=== PATIENT | female | born 1960 | race Caucasian/White ===

== ENCOUNTER → 2018-05-01 02:49 | Outpatient (CLI) | payer OTHER, SELFPAY ==
[2018-05-01 08:03] LABS: HCT 44.4 % (36.0-46.0); HGB 14.9 g/dL (12.0-15.5); Mean Corp. HGB Concentration 33.6 g/dL (32.0-36.0); Mean Corpuscular Hemoglobin 31.2 pg (27.0-33.0); Mean Corpuscular Volume 93.1 fL (80-95); Mean Platelet Volume 9.4 fL (8.0-11.0); Platelet Count 230 x1000/uL (130-400); RBC 4.77 m/cumm (4.00-5.20); RBC Distribution Width 12.9 % (11.7-14.6); White Blood Cell Count 5.48 k/cumm (4.4-10.8)
[2018-05-01 08:20] LABS: Bilirubin Negative (Negative); Blood Negative (Negative); Clarity Clear; Glucose Negative (Negative); Ketones Negative (Negative); Leukocyte Esterase Small (Negative); Nitrite Negative (Negative); Specific Gravity 1.015 (1.005-1.025); Urobilinogen 0.2 EU/dL (Up TO 0.2); pH 7.5 (5-8)
[2018-05-01 08:30] LABS: RBC 0-2 (0-2); WBC 20-50 HPF (0-5)
[2018-05-01 08:31] LABS: Bacteria Moderate HPF (Negative); C & S Indicated? No/Sq. Contamination; Casts Negative LPF (Negative); Crystals Negative HPF (Negative); Epithelial Cells Moderate HPF (Negative); Mucus Negative (Negative)
[2018-05-01 08:48] LABS: Iron 93 ug/dL (50-175)
[2018-05-01 08:55] LABS: ALT 23 U/L (12-78); AST 18 U/L (15-37); Albumin 3.9 g/dL (3.4-5.0); Alkaline Phosphatase 83 U/L (46-116); BUN 16 mg/dL (7-18); Bilirubin, Total 0.5 mg/dL (0.2-1.0); CREATININE 0.75 mg/dL (0.55-1.02); Calcium 8.8 mg/dL (8.5-10.1); Chloride 101 mmol/L (98-107); Glucose 81 mg/dL (70-100); Potassium 4.6 mmol/L (3.5-5.1); Sodium 140 mmol/L (136-145); Total Protein 7.2 g/dL (6.4-8.2)
== END ==
PROVIDERS: PCP Family Medicine; Visit Provider Family Medicine
DX: D64.9 Anemia, unspecified (principal); I10 Essential (primary) hypertension
CPT/HCPCS: 36415; 80053; 85027; 81003; 81015; 83540

== ENCOUNTER 2018-05-29 02:35 | Outpatient (CLI) | payer OTHER, SELFPAY ==
[2018-05-29 10:29] LABS: Cholesterol 208 mg/dL (50-200); HDL Cholesterol 81 mg/dL (40-60); LDL CHOLESTEROL 123 mg/dL (<100); Triglyceride 41 mg/dL (30-150)
== END 2018-05-29 02:55 ==
PROVIDERS: PCP Family Medicine; Visit Provider Family Medicine
DX: I10 Essential (primary) hypertension (principal)
CPT/HCPCS: 36415; 80061; 83721

== ENCOUNTER 2018-07-13 15:10 | Outpatient (REF) | payer OTHER, SELFPAY | END 2018-07-13 15:30 | LOC: LBN 15:10 | PROVIDERS: PCP Family Medicine; Visit Provider Nurse Practitioner Family | DX: N30.90 Cystitis, unspecified without hematuria (principal) | CPT/HCPCS: 87086 ==

== ENCOUNTER 2018-07-25 12:47 | Outpatient (CLI) | payer OTHER, SELFPAY | END 2018-07-25 13:07 | PROVIDERS: PCP Family Medicine; Visit Provider Obstetrics & Gynecology | DX: R39.15 Urgency of urination (principal) | CPT/HCPCS: 87086 ==

== ENCOUNTER 2018-08-01 12:50 | Outpatient (CLI) | payer OTHER, SELFPAY ==
--- NOTE | 2018-08-01 16:00 | DI.US_ITS ---
SYMPTOMS/DIAGNOSIS: RIGHT LOWER QUADRANT ABDOMINAL PAIN, R10.31 PELVIC ULTRASOUND: The transabdominal and transvaginal examination was carried out according to the usual protocol. The uterus has a length of 5.4 cm, height of 2.5 cm, width of 4.2 cm and endometrial stripe thickness of 4.6 mm. The right ovary measures 2.2 x 1.2 x 1.2 cm, the left ovary 2.0 x 1.1 x 1.3 cm. The left kidney measures 9.5 cm, right kidney 10.2 cm. Note is made of bilateral arterial and venous flow in both ovaries. There is a small clump of echogenic foci in the lower uterine segment, which is not felt to represent a significant abnormality. SUMMARY: No acute abnormality is identified. The study is essentially within normal limits.
== END 2018-08-01 13:10 ==
PROVIDERS: PCP Family Medicine; Visit Provider Obstetrics & Gynecology
DX: R10.31 Right lower quadrant pain (principal)
CPT/HCPCS: 76830; 76856

== ENCOUNTER 2018-10-13 00:16 | Outpatient (CLI) | payer OTHER, SELFPAY ==
[2018-10-13 11:50] LABS: Anion Gap 5.8 mmol/L (3-11); BUN 14 mg/dL (7-18); CO2 34.2 mmol/L (21.0-32.0); CREATININE 0.63 mg/dL (0.55-1.02); Calcium 9.1 mg/dL (8.5-10.1); Chloride 99 mmol/L (98-107); Ferritin 286 ng/mL (8-388); Glucose 68 mg/dL (70-100); Potassium 4.3 mmol/L (3.5-5.1); Sodium 139 mmol/L (136-145)
[2018-10-13 13:10] LABS: Iron 104 ug/dL (50-175); Total Iron Binding Capacity 245 ug/dL (250-450); Transferrin Sat 42 % (15-50)
== END 2018-10-13 00:36 ==
PROVIDERS: PCP Family Medicine; Visit Provider Family Medicine
DX: D50.9 Iron deficiency anemia, unspecified (principal); I10 Essential (primary) hypertension
CPT/HCPCS: 36415; 80048; 82728; 83540; 83550

== ENCOUNTER 2018-11-20 00:10 | Outpatient (CLI) | payer OTHER, SELFPAY ==
--- NOTE | 2018-11-20 16:51 | DI.DEXA_ITS ---
SYMPTOM/DIAGNOSIS: SCREENING FOR OSTEOPOROSIS, Z13.820 DEXA SCAN: The scanogram is unremarkable. For the left hip, a T score of -3.3 and a Z score of -2.3 are consistent with osteoporosis and a high fracture risk. For the lumbar spine, a T score of -0.9 and a Z score of 0.6 are within the normal range. For the left forearm, a T score of -0.9 and a Z score of 0.3 are also within the normal range.
== END 2018-11-20 00:30 ==
PROVIDERS: PCP Family Medicine; Visit Provider Family Medicine
DX: M81.0 Age-related osteoporosis without current pathological fracture (principal)
CPT/HCPCS: 77080

== ENCOUNTER 2019-08-22 01:26 | Outpatient (CLI) | payer OTHER, SELFPAY ==
[2019-08-22 08:43] LABS: HCT 41.6 % (36.0-46.0); HGB 14.2 g/dL (12.0-15.5)
[2019-08-22 12:14] LABS: Iron 94 ug/dL (50-170); Total Iron Binding Capacity 263 ug/dL (250-450); Transferrin Sat 36 % (15-50)
[2019-08-22 12:20] LABS: ALT 21 U/L (14-59); AST 13 U/L (15-37); Albumin 3.8 g/dL (3.4-5.0); Alkaline Phosphatase 79 U/L (46-116); Anion Gap 6.3 mmol/L (3-11); BUN 16 mg/dL (7-18); Bilirubin, Total 0.5 mg/dL (0.2-1.0); CO2 31.7 mmol/L (21.0-32.0); CREATININE 0.68 mg/dL (0.55-1.02); Calcium 8.7 mg/dL (8.5-10.1); Calculated LDL 127 mg/dL; Chloride 98 mmol/L (98-107); Cholesterol 207 mg/dL (<200); Ferritin 312 ng/mL (8-252); Glucose 81 mg/dL (74-106); HDL Cholesterol 72 mg/dL (40-60); Potassium 3.9 mmol/L (3.5-5.1); Sodium 136 mmol/L (136-145); Total Protein 6.8 g/dL (6.4-8.2); Triglyceride 41 mg/dL (<150)
== END 2019-08-22 01:46 ==
PROVIDERS: PCP Family Medicine; Visit Provider Family Medicine
DX: I10 Essential (primary) hypertension (principal); Z86.2 Personal history of diseases of the blood and blood-forming organs and certain disorders involving the immune mechanism
CPT/HCPCS: 36415; 80053; 80061; 82728; 83540; 83550; 85014; 85018

== ENCOUNTER 2020-01-09 00:50 | Outpatient (CLI) | payer OTHER, SELFPAY ==
--- NOTE | 2020-01-21 07:30 | DI.US_ITS ---
EXAM: US ABDOMEN CLINICAL HISTORY: RUQ intermittent pain/discomfort,tenderness,r10.811 TECHNIQUE: Ultrasound performed using standard protocol. COMPARISON: US US PELVIS TRANSVAGINAL from 08/01/2018 FINDINGS: There is heterogeneous echotexture of the liver with no gross focal mass lesion identified. This is a nonspecific finding. No biliary dilatation. No cholelithiasis. Normal appearance of the gallblad tee wall. Abdominal aorta and IVC are of normal diameter. Spleen appears normal. Pancreas appears intact as visualized. The kidneys are unremarkable in appearance with no evidence o f hydronephrosis or nephrolithiasis. IMPRESSION: Heterogeneous appearance of hepatic parenchyma, this is a non specific finding and there is no focal mass lesion identified by ultrasound criteria. No evidence of cholelithiasis or biliary dilatation. DATA REPOSITORY:
== END 2020-01-09 01:10 ==
PROVIDERS: PCP Family Medicine
DX: R10.11 Right upper quadrant pain (principal); R10.811 Right upper quadrant abdominal tenderness

== ENCOUNTER 2020-01-21 01:19 | Outpatient (CLI) | payer OTHER, SELFPAY ==
[2020-01-21 08:15] LABS: Abs Immature Grans 0.01 k/cumm (0.0-0.09); Absolute Basophil Count 0.03 k/cumm (0.0-0.2); Absolute Eosinophil Count 0.09 k/cumm (0.0-0.7); Absolute Lymphocyte Count 1.62 k/cumm (1.2-3.4); Absolute Monocyte Count 0.47 k/cumm (0.11-0.7); Absolute Neutrophil Count 3.44 k/cumm (1.2-6.7); Basophils % 0.5; Eosinophils % 1.6; HCT 43.8 % (36.0-46.0); HGB 14.9 g/dL (12.0-15.5); Immature Grans % 0.2 %; Lymphocytes % 28.6; Mean Corpuscular Hemoglobin 31.5 pg (27.0-33.0); Mean Corpuscular Volume 92.6 fL (80-95); Mean Platelet Volume 9.2 fL (8.0-11.0); Monocytes % 8.3; Neutrophils % 60.8; Platelet Count 236 x1000/uL (130-400); RBC 4.73 m/cumm (4.00-5.20); White Blood Cell Count 5.66 k/cumm (4.4-10.8)
[2020-01-21 09:02] LABS: ALT 29 U/L (14-59); AST 17 U/L (15-37); Albumin 3.9 g/dL (3.4-5.0); Alkaline Phosphatase 73 U/L (46-116); Anion Gap 3.9 mmol/L (3-11); BUN 11 mg/dL (7-18); Bilirubin, Total 0.5 mg/dL (0.2-1.0); CO2 34.1 mmol/L (21.0-32.0); CREATININE 0.72 mg/dL (0.55-1.02); Calcium 8.9 mg/dL (8.5-10.1); Chloride 100 mmol/L (98-107); GGT 29 U/L (5-55); Glucose 85 mg/dL (74-106); Potassium 4.4 mmol/L (3.5-5.1); Sodium 138 mmol/L (136-145); Total Protein 7.1 g/dL (6.4-8.2)
== END 2020-01-21 01:39 ==
PROVIDERS: PCP Family Medicine
DX: R10.11 Right upper quadrant pain (principal)
CPT/HCPCS: 36415; 80053; 76700; 82977; 85025

== ENCOUNTER 2020-08-12 03:34 | Outpatient (CLI) | payer OTHER, SELFPAY ==
[2020-08-12 08:37] LABS: ALT 23 U/L (14-59); AST 15 U/L (15-37); Alkaline Phosphatase 79 U/L (46-116); BUN 16 mg/dL (7-18); Bilirubin, Total 0.5 mg/dL (0.2-1.0); CREATININE 0.75 mg/dL (0.55-1.02); Calcium 8.8 mg/dL (8.5-10.1); Calculated LDL 141 mg/dL (<100); Chloride 101 mmol/L (98-107); Cholesterol 235 mg/dL (<200); Glucose 86 mg/dL (74-106); HDL Cholesterol 84 mg/dL (40-60); Potassium 4.4 mmol/L (3.5-5.1); Sodium 137 mmol/L (136-145); Total Protein 7.3 g/dL (6.4-8.2); Triglyceride 53 mg/dL (<150)
== END 2020-08-12 03:54 ==
PROVIDERS: PCP Family Medicine
DX: Z13.220 Encounter for screening for lipoid disorders (principal); E03.9 Hypothyroidism, unspecified; Z00.00 Encounter for general adult medical examination without abnormal findings
CPT/HCPCS: 36415; 80053; 80061

== ENCOUNTER 2020-09-23 22:18 | Outpatient (REF) | payer OTHER, SELFPAY | END 2020-09-23 22:38 | LOC: LBN 22:18 | PROVIDERS: PCP Family Medicine; Visit Provider Nurse Practitioner Family | DX: N39.0 Urinary tract infection, site not specified (principal) | CPT/HCPCS: 87086 ==

== ENCOUNTER 2020-11-05 02:23 | Outpatient (CLI) | payer OTHER, SELFPAY ==
[2020-11-05] MEDS: Breeza Beverage 473 ML BTL PO ×2 (07:49→07:50)
[2020-11-05] MEDS: Omnipaque 350 MG/ML 50 ML BTL IJ (07:50)
--- NOTE | 2020-11-05 08:57 | DI.CT_ITS ---
EXAM: CT ABDOMEN PELVIS W CLINICAL HISTORY: RUQ discomfort, chronic,RUQ PAIN, R10.11. TECHNIQUE: Imaging Protocol: Axial computed tomography images with coronal and sagittal reformatted images were created and reviewed CONTRAST MATERIAL: Intravenous: Omnipaque 100cc Oral: None COMPARISON: CT ABD PELVIS WITH CONTRAST from 08/22/2008 FINDINGS: VISUALIZED LUNG BASES: No nodules nor pleural effusions evident. Bilateral saline breast implants noted ABDOMEN: There is no ascites. LIVER: There are no obvious focal hepatic lesions evident . GALLBLADDER/BILIARY: No obvious gallbladder pathology. CBD is not dilated. PANCREAS: No evidence of pancreatic mass nor dilatation of the pancreatic duct. SPLEEN: Spleen is not enlarged. No obvious intrasplenic lesions. Splenic and portal veins are paten t. ADRENALS: There are no significant adrenal masses. KIDNEYS:No cysts evident. No solid renal masses. No calculi nor hydronephrosis.. ABDOMINAL AORTA: Abdominal aorta is calcified but not enlarged. LYMPH NODES:There is no retroperitineal nor paraaortic adenopathy. ABDOMINAL WALL/GI: No evidence of significant anterior abdominal wall hernia. No bowel obstruction. PELVIS: GI: No evidence of appendicitis.No evidence of sigmoid diverticulitis. LYMPH NODES: There is no intrapelvic nor inguinal adenopathy. REPRODUCTIVE: Age-appropriate URINARY BLADDER: No calculi nor obvious masses evident OSSEOUS: Partial ankylosis of the sacroiliac joints. There is an expansile cystic mass in the sacral canal noted which measures 3.8 cm cephalocaudal by 3. 2 cm AP by 4 cm wide. 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 It appears min imally more prominent than on the prior study of 2007. There is some concavity does height loss of the superior endplate of L5 noted. IMPRESSION: 1. No obvious acute findings in the abdomen and pelvis. However, given the history here of right upp er quadrant pain I would recommend follow-up ultrasound of the right upper quadrant. 2. There is expansile mass in the sacral canal which is minimally in size from 2007. Measures 3.8 x 3.2 x 4.0 cm. 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 3. Compression fracture superior endplate of L5, age indeterminate. RADIATION DOSE DELIVERED: 726.3mGy.cm Total DLP DATA REPOSITORY: All CT scans at this facility are submitted to the National Radiology Data Registry (NRDR) Dose Index Registry (DIR) with the [employer] (ACR). RADIATION OPTIMIZATION: All CT scans at this facility use at least one of these dose optimization te chniques: automated exposure control; mA and/or kV adjustment per patient size (includes targeted exa ms where dose is matched to clinical indication); or iterative reconstruction.
[2020-11-05] MEDS: Normal Saline - Diluent 50 ML VIAL IV (09:33)
[2020-11-05] MEDS: Omnipaque 350 MG/ML 100 ML BTL IJ (09:34)
[2020-11-05] MEDS: Normal Saline Flush 10 ML SYR IVP (09:35)
== END 2020-11-05 02:24 ==
LOC: DI 02:23
PROVIDERS: PCP Family Medicine
DX: R10.11 Right upper quadrant pain (principal); S32.050A Wedge compression fracture of fifth lumbar vertebra, initial encounter for closed fracture
CPT/HCPCS: 74177; J3490; Q9967

== ENCOUNTER 2020-12-03 20:47 | Observation (INO) | payer OTHER, SELFPAY ==
[2020-12-03] VITALS (28 sets, daily range): BP systolic 125–173; BP diastolic 62–122; PULSE 73–91; RESP 13–21; TEMP 37.1; O2SAT 92–100
--- NOTE | 2020-12-03 20:45 | RT.EKG_ITS ---
APPROVED REPORT Exam: Resting ECG Patient Location: E HR:84 bpm ECG Measurements Heart Rate 84 AXIS SD 178 P 70 QRSd 91 QRS 1 QT 407 T 57 QTc 482 Conclusion Sinus rhythm...normal P axis, V-rate 60- 99 Probable left atrial enlargement...P >50mS, <-0.10mV V1
--- NOTE | 2020-12-03 21:01 | ED.GENADUL_ITS ---
Discharge Plan Discharge Details Chief Complaint: Chest Pain Primary Care Provider: Shanell Aguayo ED Provider: Juan Diego Garcia Home Meds and New Rx's Prescriptions: No Action acyclovir [Zovirax] 5 % ointment 1 applic Topical Q2H PRN (Reason: cold sores) Qty: 1 RF: 0 Daily Multiple 1 EACH tablet 1 tab-cap PO DAILY RF: 0 ascorbic acid (vitamin C) 1,000 MG tablet 1 tab PO DAILY RF: 0 atenolol 25 MG tablet 25 mg PO DAILY Qty: 30 RF: 12 Fish Oil 1 EACH capsule 1 ea PO 3x weekly RF: 0 Premarin 45 GM cream 0.5 g VG DAILY Qty: 1 RF: 0 hydrochlorothiazide 25 MG tablet 25 mg PO DAILY Qty: 90 RF: 0 polyethylene glycol 3350 [Miralax] 17 gram powder in packet 17 gm PO .3 xweek' RF: 0 calcium carbonate-vitamin D3 [Caltrate with Vitamin D3] 600 mg(1,500mg) -800 u nit tablet 2 tab PO DAILY RF: 0 ferrous sulfate 325 mg (65 mg iron) tablet 325 mg PO DAILY Qty: 90 RF: 4 citalopram 10 mg tablet 10 mg PO DAILY Qty: 90 RF: 3 alprazolam [Xanax] 0.25 mg tablet 0.25 mg PO BID PRN (Reason: generalized anxiety disorder) Qty: 25 RF: 0 aspirin [Aspir-81] 81 MG tablet,delayed release (DR/EC) 81 mg PO DAILY RF: 0 atorvastatin 20 mg Tablet 20 mg PO DAILY RF: 0 albuterol sulfate [ProAir HFA] 90 mcg/actuation HFA aerosol inhaler 1 - 2 puff Inhalation QID PRNRF: 0 Medical Decision Making ECG Data Attestation: I personally reviewed and interpreted this ECG (s) as follows: Interpretation: Please see official report by Dr. Ceballos. Sinus rhythm, ventricular rate 84. No STEMI. HPI General Date/Time Provider Initiated Documentation: 12/03/20 20:51 . Related Data Home Medications Medication Instructions Recorded Confirmed [id number]-pvgf-[id number] acid 1 tab-cap PO DAILY tab-cap 11/30/12 12/03/20 [Daily Multiple Tablet] ascorbic acid (vitamin C) 1 tab PO DAILY 12/04/12 12/03/20 aspirin [Aspir 81] 81 mg PO DAILY 01/17/13 12/03/20 atenolol 25 mg PO DAILY #30 tab-cap 05/15/14 12/03/20 omega-3 fatty acids-fish oil [Fish 1 ea PO 3x weekly 02/18/15 12/03/20 Oil 1,000 Mg Capsule] conjugated estrogens [Premarin 0.5 g VG DAILY #1 ca 12/15/15 12/03/20 Vaginal Cream] hydrochlorothiazide 25 mg PO DAILY #90 tab-cap 04/18/17 12/03/20 polyethylene glycol 3350 17 gram 17 gm PO .3 xweek' gm 10/17/18 12/03/20 oral powder packet acyclovir 5 % topical ointment 1 applic TOPICAL Q2H PRN #1 tube 06/24/19 12/03/20 calcium carbonate-vitamin D3 600 2 tab PO DAILY tab 10/01/19 12/03/20 mg (1,500 mg)-800 unit tablet ferrous sulfate 325 mg (65 mg 325 mg PO DAILY #90 tab-cap 02/05/20 12/03/20 iron) tablet citalopram 10 mg tablet 10 mg PO DAILY #90 tab-cap 06/29/20 12/03/20 alprazolam 0.25 mg tablet 0.25 mg PO BID PRN #25 tab 11/17/20 12/03/20 albuterol sulfate [ProAir HFA] 1 - 2 puff INHALATION QID PRN 12/03/20 12/03/20 atorvastatin 20 mg PO DAILY 12/03/20 12/03/20 Previous Rx's Medication Instructions Recorded acyclovir 5 % topical ointment 1 applic TOPICAL Q2H PRN #1 tube 06/24/19 ferrous sulfate 325 mg (65 mg 325 mg PO DAILY #90 tab-cap 02/05/20 iron) tablet citalopram 10 mg tablet 10 mg PO DAILY #90 tab-cap 06/29/20 alprazolam 0.25 mg tablet 0.25 mg PO BID PRN #25 tab 11/17/20 Allergies Allergy/AdvReac Type Severity Reaction Status Date / Time No Known Allergies Allergy Verified 12/03/20 20:58 General Stated Complaint: Chest Pain JAIME: 2 PFSH Medical History (Updated 10/02/20 @ 21:34 by Staci Brambila NP) Carpal tunnel syndrome (08/15/08) w/ ulnar neuropathy - Constipation Depression Hypertension Irritable colon colonoscopy 1999, 2007, 2014: normal/ [facility] in 2014 Low grade squamous intraepithelial lesion (LGSIL) on Papanicolaou smear of cer vix (10/28/11) OAB (overactive bladder) (01/05/16) normal cystoscopy 2016 [facility] Postmenopausal bleeding (08/26/13) RUQ discomfort Started 12/2019 US negative 01/2020 Vaginal atrophy (01/05/16) / estrogen cream Surgical History Augmentation mammoplasty B/L X 3 FOOT SURGERY (~01/2012) HAND SURGERY (~01/2013) Revision, Scar (~1992) Tonsillectomy and adenoidectomy (~1963) Family History Mother , age 90 Essential hypertension Heart disease Angina Hyperlipidemia Father , age 59 Essential hypertension Heart disease Hyperlipidemia Myocardial infarction Brother Acute hepatitis c CURED Heart disease Stroke cerebral aneurysm Prostate cancer Cerebral aneurysm Maternal Grandfather , age 45 Pulmonary disease Lung cancer Paternal Grandfather Heart disease Maternal Grandmother , age 95 Dementia Alzheimer's Paternal Grandmother , in her 40s Heart disease Daughter Essential hypertension Family history Lung cancer Colon cancer Social History Smoking/Tobacco Use Status: Never Smoking risk assessment performed?: Yes Alcohol Intake: current Alcohol Intake frequency: 0-2 drinks per day Alcohol type: wine Drug use: Never Substance use type: does not use Caregiver/Support person: No Household members: spouse Housing: house Communication Needs: None Do you need help understanding health information?: Never Pets and animals: Yes Pets and animals: cat(s) Sexually active: Yes Do you think of yourself as: straight/heterosexual Current gender identity: female What is your relationship status?: How often do you talk on the phone with friends or family?: three or more times per week How often do you get together with friends or relatives?: once per week How often do you attend mormonism or uatsdin services?: decline to answer Do you belong to any clubs or organized social groups?: decline to answer Panel score (0-1 are the most socially isolated patients): 2 What type of physical activity do you participate in: none Lidia/Zoroastrianism: Sabianist Special lidia needs: No Seatbelt use: always Helmet use: Yes Helmet use: always Drive intox or ride w/intox lifter/driver: No Do you feel safe at home: Yes Do you feel safe in your relationship?: Yes Victim of physical abuse: No Victim of emotional abuse: No Victim of sexual abuse: No Would you like helpful sources: No Course Vital Signs Vital signs: Vital Signs Temperature 37.1 C 12/03/20 20:52 Pulse 84 12/03/20 20:52 Respiratory Rate 13 12/03/20 20:52 Blood Pressure 173/73 H 12/03/20 20:52 Pulse Oximetry 97 12/03/20 20:52 Temperature 37.1 C 12/03/20 20:52 Temperature Source Skin 12/03/20 20:52 Pulse 84 12/03/20 20:52 Respiratory Rate 19 12/03/20 20:55 Respiratory Effort Non-Labored 12/03/20 20:55 Respiratory Depth Normal 12/03/20 20:55 Respiratory Pattern Normal 12/03/20 20:55 Blood Pressure 173/73 H 12/03/20 20:52 Blood Pressure Position Supine 12/03/20 20:52 Pulse Oximetry 97 12/03/20 20:52 Oxygen Delivery Method Room Air 12/03/20 20:52 Oxygen Flow Rate 0 12/03/20 20:52 Pain Level 4 12/03/20 20:55
[2020-12-03] MEDS: nitroGLYcerin 0.4 MG TAB SL (21:13)
[2020-12-03 21:19] LABS: Abs Immature Grans 0.03 10^3/uL (0.0-0.06); Absolute Basophil Count 0.06 10^3/uL (0.0-0.2); Absolute Eosinophil Count 0.11 10^3/uL (0.0-0.7); Absolute Lymphocyte Count 2.84 10^3/uL (1.2-3.4); Absolute Neutrophil Count 4.37 10^3/uL (1.2-6.7); Basophils % 0.7; Eosinophils % 1.4; HCT 43.9 % (36.0-46.0); HGB 15.2 g/dL (11.2-15.7); Immature Grans % 0.4; MCH 31.8 pg (27.0-33.0); MCHC 34.6 % (32.0-36.0); MCV 91.8 fL (80-95); MPV 9.5 fL (8.0-11.0); Monocytes % 8.6; Neutrophils % 53.9; Nucleated RBC 0 %; Platelet Count 241 10^3/uL (130-400); RBC 4.78 10^6/uL (3.93-5.22); RDW-SD 40.5 fL; WBC 8.11 10^3/uL (4.4-10.8)
--- NOTE | 2020-12-03 21:29 | W.ED.GENAD ---
Discharge Plan Disposition Patient Disposition: [facility] INPATIENT Condition: Good Discharge Details Clinical Impression: Chest pain Admit Date/Time: 12/04/20 01:02 Admit Provider: Harvinder Weiss Attending Provider: Harvinder Weiss Primary Care Provider: Shanell Aguayo ED Provider: Lino Billings Discharge Data Discharge Date/Time-TO BE ENTERED AT DEPARTURE: 12/04/20 01:31 Medical Decision Making <Benito Ceballos MD - Last Filed: 12/18/20 17:44> 2133??60-year-old female with history of hypertension, hyperlipidemia, positive family history for ACS, father and intracranial aneurysm brother, here with left-sided chest pain radiating to her left shoulder and back that started approximately 30 minutes prior to arrival while at rest. She is saturating well in no respiratory distress. She is hypertensive. Consider ACS. Screening ECG was reviewed and interpreted by me: Please see report, sinus rhythm 84 bpm, left atrial enlargement. Plan to check troponin. I will give nitroglycerin sublingual. She took aspirin prior to arrival. Patient is low risk for pulmonary embolism. Will check D-dimer. Consider aortic dissection. Plan to obtain CT of the chest <Lion Billings MD - Last Filed: 12/04/20 01:07> Patient signed out to me pending results of CT scan as well as repeat EKG and troponin. Plan for observation admission given his heart score of 4. Held in the ED for second troponin given patient presented to ED with chest pain 30 minutes prior to arrival. Patient currently pain-free. CTA of chest shows no PE. CTA of aorta negative. Repeat EKG is unchanged from previous done earlier this evening. Second troponin negative. Case discussed with hospitalist who accepts patient for further evaluation and management of chest pain. Lab Data Lab results reviewed: Yes I reviewed the patient's lab results. ECG Data Attestation: I personally reviewed and interpreted this ECG (s) as follows: Prior ECG tracings: available for review Interpretation: see EKG HPI <Benito Ceballos MD - Last Filed: 12/18/20 17:44> General Mode of arrival: ambulatory. Date/Time Provider Initiated Documentation: 12/03/20 20:51. Limitations to Documentation: no limitations. Information obtained by: patient. HPI Narrative: 60-year-old female with history of hypertension, hyperlipidemia, positive family history for acute coronary syndrome and intracranial aneurysm, presents with chief complaint of chest pain. Pain started at rest about 30 minutes prior to arrival and has been constant. Pain is localized left chest and radiates into her left shoulder and back. She denies associated shortness of breath. No nausea vomiting. No diaphoresis. No leg swelling or calf pain. No recent surgery, long distance travel or immobility. Patient denies respiratory symptoms and fever. Related Data Home Medications Medication Instructions Recorded Confirmed Daily Multiple 1 tab-cap PO DAILY tab-cap 11/30/12 12/03/20 ascorbic acid (vitamin C) 1 tab PO DAILY 12/04/12 12/03/20 aspirin [Aspir-81] 81 mg PO DAILY 01/17/13 12/03/20 atenolol 25 mg PO DAILY #30 tab-cap 05/15/14 12/03/20 Fish Oil 1 ea PO 3x weekly 02/18/15 12/03/20 Premarin 0.5 g VG DAILY #1 ca 12/15/15 12/03/20 hydrochlorothiazide 25 mg PO DAILY #90 tab-cap 04/18/17 12/03/20 polyethylene glycol 3350 17 gram 17 gm PO .3 xweek' gm 10/17/18 12/03/20 oral powder packet acyclovir 5 % topical ointment 1 applic TOPICAL Q2H PRN #1 tube 06/24/19 12/03/20 calcium carbonate-vitamin D3 600 2 tab PO DAILY tab 10/01/19 12/03/20 mg (1,500 mg)-800 unit tablet ferrous sulfate 325 mg (65 mg 325 mg PO DAILY #90 tab-cap 02/05/20 12/03/20 iron) tablet citalopram 10 mg tablet 10 mg PO DAILY #90 tab-cap 06/29/20 12/03/20 albuterol sulfate [ProAir HFA] 1 - 2 puff INHALATION QID PRN 12/03/20 12/03/20 atorvastatin 20 mg PO DAILY 12/03/20 12/03/20 alprazolam 0.25 mg tablet 0.25 mg PO BID PRN #25 tab 12/11/20 Previous Rx's Medication Instructions Recorded acyclovir 5 % topical ointment 1 applic TOPICAL Q2H PRN #1 tube 06/24/19 ferrous sulfate 325 mg (65 mg 325 mg PO DAILY #90 tab-cap 02/05/20 iron) tablet citalopram 10 mg tablet 10 mg PO DAILY #90 tab-cap 06/29/20 alprazolam 0.25 mg tablet 0.25 mg PO BID PRN #25 tab 12/11/20 Allergies Allergy/AdvReac Type Severity Reaction Status Date / Time No Known Allergies Allergy Verified 12/03/20 20:58 General Stated Complaint: Chest Pain JAIME: 2 Review of Systems <Benito Ceballos MD - Last Filed: 12/18/20 17:44> Constitutional Constitutional: Denies fever(s) Cardiovascular Cardiovascular: Reports as per HPI and Denies dyspnea Respiratory Respiratory: Denies dyspnea PFSH <Benito Ceballos MD - Last Filed: 12/18/20 17:44> Medical History Carpal tunnel syndrome (08/15/08) w/ ulnar neuropathy - Constipation Depression Hypertension Irritable colon colonoscopy 1999, 2007, 2013: normal/ [facility] in 2014 Low grade squamous intraepithelial lesion (LGSIL) on Papanicolaou smear of cervix (10/28/11) OAB (overactive bladder) (01/05/16) normal cystoscopy 2016 [facility] Postmenopausal bleeding (08/26/13) RUQ discomfort Started 12/2019 US negative 01/2020 Vaginal atrophy (01/05/16) / estrogen cream Surgical History Augmentation mammoplasty B/L X 3 FOOT SURGERY (~01/2012) HAND SURGERY (~01/2013) Revision, Scar (~1992) Tonsillectomy and adenoidectomy (~1963) Family History Mother , age 90 Essential hypertension Heart disease Angina Hyperlipidemia Father , age 59 Essential hypertension Heart disease Hyperlipidemia Myocardial infarction Brother Acute hepatitis c CURED Heart disease Stroke cerebral aneurysm Prostate cancer Cerebral aneurysm Maternal Grandfather , age 45 Pulmonary disease Lung cancer Paternal Grandfather Heart disease Maternal Grandmother , age 95 Dementia Alzheimer's Paternal Grandmother , in her 40s Heart disease Daughter Essential hypertension Family history Lung cancer Colon cancer Social History (Reviewed 12/04/20 @ 12:05 by LISETTE Kevin Smoking/Tobacco Use Status: Never Smoking risk assessment performed?: Yes Alcohol Intake: current Alcohol Intake frequency: 0-2 drinks per day Alcohol type: wine Drug use: Never Substance use type: does not use Caregiver/Support person: No Household members: spouse Housing: house Communication Needs: None Do you need help understanding health information?: Never Pets and animals: Yes Pets and animals: cat(s) Sexually active: Yes Do you think of yourself as: straight/heterosexual Current gender identity: female What is your relationship status?: How often do you talk on the phone with friends or family?: three or more times per week How often do you get together with friends or relatives?: once per week How often do you attend muslim or sabianism services?: decline to answer Do you belong to any clubs or organized social groups?: decline to answer Panel score (0-1 are the most socially isolated patients): 2 What type of physical activity do you participate in: none Lidia/Mandaen: Protestant Special lidia needs: No Seatbelt use: always Helmet use: Yes Helmet use: always Drive intox or ride w/intox wood pile driver operator: No Do you feel safe at home: Yes Do you feel safe in your relationship?: Yes Victim of physical abuse: No Victim of emotional abuse: No Victim of sexual abuse: No Would you like helpful sources: No Exam <Benito Ceballos MD - Last Filed: 12/18/20 17:44> Const General: cooperative and no acute distress HENMT Mouth: moist mucous membranes Eyes Conjunctivae: normal conjunctivae Sclera: normal sclerae Neck Neck: trachea midline and supple Resp Auscultation: clear to auscultation bilaterally, no rales, no rhonchi and no wheezes Cardio Rate: regular rate and not tachycardic Rhythm: regular rhythm Heart Sounds: no murmurs GI Palpation: soft, not firm, no guarding, no masses, not rigid and nontender Skin General skin exam: no rashes or lesions noted Neuro General: patient alert, patient awake, patient oriented x3 and tone normal Extrem General: no calf tenderness and no edema Psych Appearance: grossly normal Mental Status: mental status grossly normal Speech and Movement: speech and movement normal Course <Benito Ceballos MD - Last Filed: 12/18/20 17:44> Vital Signs Vital signs: Vital Signs Temperature 37.1 C 12/03/20 20:52 Pulse 84 12/03/20 20:52 Respiratory Rate 13 12/03/20 20:52 Blood Pressure 173/73 H 12/03/20 20:52 Pulse Oximetry 97 12/03/20 20:52 Temperature 37.1 C 12/03/20 20:52 Temperature Source Skin 12/03/20 20:52 Pulse 84 12/03/20 20:52 Respiratory Rate 19 12/03/20 20:55 Respiratory Effort Non-Labored 12/03/20 20:55 Respiratory Depth Normal 12/03/20 20:55 Respiratory Pattern Normal 12/03/20 20:55 Blood Pressure 173/73 H 12/03/20 20:52 Blood Pressure Position Supine 12/03/20 20:52 Pulse Oximetry 97 12/03/20 20:52 Oxygen Delivery Method Room Air 12/03/20 20:52 Oxygen Flow Rate 0 12/03/20 20:52 Pain Level 4 12/03/20 20:55 Lab/Test Results Lab/Test Results: Laboratory Tests Range/Units 12/03/20 21:00 WBC (4.4-10.8) 10^3/uL 8.11 RBC (3.93-5.22) 10^6/uL 4.78 Hgb (11.2-15.7) g/dL 15.2 Hct (36.0-46.0) % 43.9 MCV (80-95) fL 91.8 MCH (27.0-33.0) pg 31.8 MCHC (32.0-36.0) % 34.6 RDW (11.7-14.6) % 12.0 Plt Count (130-400) 10^3/uL 241 MPV (8.0-11.0) fL 9.5 Immature Gran % 0.4 Neutrophils % 53.9 Lymphocytes % 35.0 Monocytes % 8.6 Eosinophils % 1.4 Basophils % 0.7 Nucleated RBC % % 0 Absolute Neutrophils (1.2-6.7) 10^3/uL 4.37 Absolute Lymphocytes (1.2-3.4) 10^3/uL 2.84 Absolute Monocytes (0.1-0.8) 10^3/uL 0.70 Absolute Eosinophils (0.0-0.7) 10^3/uL 0.11 Absolute Basophils (0.0-0.2) 10^3/uL 0.06 Sign Out <Benito Ceballos MD - Last Filed: 12/18/20 17:44> Sign Out Data: Sign Out Comment: followup cta and delta trop. reassess patient for disposition. Last updated by Benito Ceballos MD at 12/03/20 23:26
[2020-12-03 21:35] LABS: ALT 30 U/L (14-59); AST 15 U/L (15-37); Albumin 4.1 g/dL (3.4-5.0); Alkaline Phosphatase 103 U/L (46-116); Anion Gap 9.6 mmol/L (3-11); BUN 15 mg/dL (7-18); Bilirubin, Total 0.3 mg/dL (0.2-1.0); CO2 30.4 mmol/L (21.0-32.0); CREATININE 0.7 mg/dL (0.55-1.02); Calcium 9.2 mg/dL (8.5-10.1); Chloride 97 mmol/L (98-107); Glucose 100 mg/dL (74-106); Potassium 3.4 mmol/L (3.5-5.1); Sodium 137 mmol/L (136-145); Total Protein 7.9 g/dL (6.4-8.2)
[2020-12-03 21:37] LABS: PTT Activated 37.5 sec (21.0-27.5)
[2020-12-03 21:43] LABS: Troponin I < 0.05 ng/mL (<0.06)
[2020-12-03 22:05] LABS: D-Dimer 243 ng/mlFEU (<500)
--- NOTE | 2020-12-03 22:30 | DI.CT_ITS ---
EXAM: CT THORAX ABDOMEN CTA CLINICAL HISTORY: left chest pain radiating to back. TECHNIQUE: Imaging Protocol: Axial CT angiography was performed with multi-slice acquisition and mu lti-planar and/or 3D reconstructions. CONTRAST MATERIAL: Intravenous: Omnipaque 350 Contrast volume:structured data in ml COMPARISON: CT CT ABDOMEN PELVIS W from 11/05/2020 FINDINGS: CT angiography of the chest and upper abdomen was performed with intravenous infusion of 100 cc of Om nipaque 350. Lungs are predominantly clear, there is mild bilateral apical pleural based scarring period. No pleu ral effusion. Tracheobronchial tree appears intact. No evidence of pulmonary embolic disease. Thoracic aorta is of normal diameter, no thoracic aortic an eurysm or dissection, major branch vessels appear intact. No mediastinal or hilar adenopathy. Images obtained through the upper abdomen show unremarkable appearance of the visualized portions of the liver, spleen, pancreas, adrenals, and kidneys. Abdominal aorta is of normal diameter. The celiac trunk, superior mesenteric artery, renal arteries, in inferior mesenteric artery are unremarkable. Common iliac arteries appear normal. IMPRESSION: Negative CT angiogram of the chest and upper abdomen. No evidence of pulmonary embolic disease. RADIATION DOSE DELIVERED: 442.51mGy.cm Total DLP 442.51mGy.cm Total DLP DATA REPOSITORY: All CT scans at this facility are submitted to the National Radiology Data Registry (NRDR) Dose Index Registry (DIR) with the [employer] (ACR). RADIATION OPTIMIZATION: All CT scans at this facility use at least one of these dose optimization te chniques: automated exposure control; mA and/or kV adjustment per patient size (includes targeted exa ms where dose is matched to clinical indication); or iterative reconstruction.
[2020-12-03] MEDS: ALPRAZolam 0.25 MG TAB PO (22:52)
[2020-12-04] VITALS (15 sets, daily range): BP systolic 123–153; BP diastolic 61–87; PULSE 71–81; RESP 14–22; TEMP 36.4–36.8; O2SAT 95–99
--- NOTE | 2020-12-04 | RT.EKG_ITS ---
APPROVED REPORT Exam: Resting ECG Patient Location: E HR:71 bpm ECG Measurements Heart Rate 71 AXIS MS 180 P 67 QRSd 85 QRS 9 QT 427 T 60 QTc 465 Conclusion Sinus rhythm...normal P axis, V-rate 60- 99 Probable left atrial enlargement...P >50mS, <-0.10mV V1 Normal [place] There are no significant changes compared to prior EKG performed on 12/03/2020 at 21:00.
--- NOTE | 2020-12-04 00:05 | DI.VRAD_ITS ---
PROCEDURE INFORMATION: Exam: CT Angiography Chest With Contrast Exam date and time: 12/03/2020 10:35 PM Age: 60 years old Clinical indication: Abdominal pain; Flank; Upper; Patient HX: Left chest pain radiating to back TECHNIQUE: Imaging protocol: Computed tomographic angiography of the chest with contrast. 3D rendering (Not supervised by radiologist): MIP and/or 3D reconstructed images were created by the technologist. Contrast material: OMNIPAQUE 350; Contrast volume: 100 ml; Contrast route: INTRAVENOUS (IV); COMPARISON: CR CHEST 2 VIEWS PA,LAT 05/06/2014 1:04 PM FINDINGS: Pulmonary arteries: No pulmonary embolism identified.. Aorta: No thoracic aortic aneurysm or dissection. Thyroid: Thyroid gland partially excluded from view but grossly unremarkable through its visualized portion. Lungs: Spiculated and reticular opacities at the lung apices. Scarring from prior infection suspected. No pulmonary consolidation. Pleural spaces: No pleural effusion or pneumothorax. Heart: Normal sized heart. Lymph nodes: No pathologically enlarged mediastinal or hilar lymph nodes. Bones/joints: No acute fracture seen among the bones of the chest. Spinal degenerative change with anterior osteophytes at multiple levels. Soft tissues: No gross soft tissue mass or fluid collection seen in the chest wall. Other findings: Bilateral mammoplasty prostheses in situ. IMPRESSION: No active disease is seen in the chest. PROCEDURE INFORMATION: Exam: CT Angiography Abdomen With Contrast Exam date and time: 12/03/2020 10:35 PM Age: 60 years old Clinical indication: Abdominal pain; Flank; Upper; Patient HX: Left chest pain radiating to back TECHNIQUE: Imaging protocol: Computed tomographic angiography images of the abdomen with intravenous contrast material. 3D rendering (Not supervised by radiologist): MIP and/or 3D reconstructed images were created by the technologist. Contrast material: OMNIPAQUE 350; Contrast volume: 100 ml; Contrast route: INTRAVENOUS (IV); COMPARISON: CR CHEST 2 VIEWS PA,LAT 05/06/2014 1:04 PM FINDINGS: Aorta: Normal caliber abdominal aorta. No abdominal aortic aneurysm or dissection. Celiac trunk and mesenteric arteries: Celiac artery, superior mesenteric artery, and visualized proximal inferior mesenteric artery grossly patent. Renal arteries: Renal arteries grossly patent bilaterally. Liver: Normal appearing liver. Gallbladder and bile ducts: Normal appearing gallbladder. No calcified gallstones. No biliary dilatation. Pancreas: Normal appearing pancreas. Spleen: Normal appearing spleen. Adrenals: Normal appearing adrenal glands. Kidneys and ureters: Normal appearing kidneys. No hydronephrosis. Stomach and bowel: No oral contrast. Stomach moderately distended with ingested material. Fecalization of small bowel loops in the upper abdomen suggesting delayed transit through the small bowel. No dilated small bowel loops seen in the upper abdomen. Pelvis not imaged. Moderate retained fecal material throughout the visualized portion of the colon. No evidence of diverticulitis or colitis through the visualized portion of the colon. Lymph nodes: No enlarged mesenteric or retroperitoneal lymph nodes seen. Intraperitoneal space: No ascites or free air seen in the upper abdomen. Bones/joints: No acute fracture seen among the bones of the abdomen. Spinal degenerative change with discogenic degeneration and anterior osteophytes at several levels. Soft tissues: No significant ventral hernia. IMPRESSION: 1. No abdominal aortic aneurysm or dissection. 2. Moderate retained fecal material throughout the visualized portion of the colon. Dictated and Authenticated by: Todd Jaimes MD. Ordering:KIRAN Oliver MD
[2020-12-04] MEDS: Omnipaque 350 MG/ML 100 ML BTL IJ (00:08)
[2020-12-04] MEDS: Normal Saline - Diluent 50 ML VIAL IV (00:09)
[2020-12-04] MEDS: Normal Saline Flush 10 ML SYR IVP ×2 (00:09→06:48)
[2020-12-04 00:42] LABS: Troponin I < 0.05 ng/mL (<0.06)
[2020-12-04 01:15] LABS: Source Nasal/Nares
[2020-12-04 03:50] LABS: Troponin I < 0.05 ng/mL (<0.06)
--- NOTE | 2020-12-04 06:18 | W.PM.HP.N ---
Date of service: 12/04/20 Time of Service: 06:18 Assessment and Plan Assessment and plan (1) Chest pain: Status: Acute Assessment and plan: Risk factors of HTN, HLD, FH. Troponin neg x 3. Likely costochondritis. Decision to be made by daytime hospitalist whether to perform stress testing and whether that would be in the hospital or as outpt. On Atenolol routinely. ASA 81mg chewable daily was initiated. (2) Hypertension: Status: Acute Assessment and plan: On HCTZ and Atenolol. Has had SBP readings into the 170's; early during evaluation in the ED. BP this AM improved. Monitor. (3) Anxiety: Status: Acute Assessment and plan: Depression and anxiety. On Citalopram and prn Xanax. Possibly some componenet of her CP was related to anxiety; improved with xanax in the ED (4) Costochondritis: Status: Acute Assessment and plan: Left sided mid-sternal margin tenderness with compression. No out of the ordinary activities or lifting prior to admission. Toradol 30mg IV ordered. History of Present Illness History of Present Illness Chief Complaint: chest pain Narrative: This is a 60 yo female with a PMH of HTN, HLD, depression with anxiety, overactive bladder. She presented to the ED with left sides chest pain that radiated into her left shoulder and back. The onset of the pain was appx 30 minutes prior to arrival. The pain was constant. She was given a SL nitroglycerine in the ED w/o relief of the pain. She was subsequently given a dose of alprazolam that she takes at home BID prn, and her pain improved to almost negligible. Her labs were unremarkable other than a K+ of 3.4. Troponin negative x 2. EKG was negative for ST, T-wave changes. CTA of chest was negative for pulmonary embolism, other acute findings. Her heart score was 4. She has a FMH of ACS and intracranial aneurysm. Admitted for further rule out. [facility]LY [facility] Medical History Carpal tunnel syndrome (08/15/08) w/ ulnar neuropathy - Constipation Depression Hypertension Irritable colon colonoscopy 1999, 2007, 2013: normal/ [facility] in 2014 Low grade squamous intraepithelial lesion (LGSIL) on Papanicolaou smear of cervix (10/28/11) OAB (overactive bladder) (01/05/16) normal cystoscopy 2015 [facility] Postmenopausal bleeding (08/26/13) RUQ discomfort Started 12/2019 US negative 01/2020 Vaginal atrophy (01/05/16) / estrogen cream Surgical History Augmentation mammoplasty B/L X 3 FOOT SURGERY (~01/2012) HAND SURGERY (~01/2013) Revision, Scar (~1992) Tonsillectomy and adenoidectomy (~1963) Family History Mother , age 90 Essential hypertension Heart disease Angina Hyperlipidemia Father , age 59 Essential hypertension Heart disease Hyperlipidemia Myocardial infarction Brother Acute hepatitis c CURED Heart disease Stroke cerebral aneurysm Prostate cancer Cerebral aneurysm Maternal Grandfather , age 45 Pulmonary disease Lung cancer Paternal Grandfather Heart disease Maternal Grandmother , age 95 Dementia Alzheimer's Paternal Grandmother , in her 40s Heart disease Daughter Essential hypertension Family history Lung cancer Colon cancer Social History Smoking/Tobacco Use Status: Never Smoking risk assessment performed?: Yes Alcohol Intake: current Alcohol Intake frequency: 0-2 drinks per day Alcohol type: wine Drug use: Never Substance use type: does not use Caregiver/Support person: No Household members: spouse Housing: house Communication Needs: None Do you need help understanding health information?: Never Pets and animals: Yes Pets and animals: cat(s) Sexually active: Yes Do you think of yourself as: straight/heterosexual Current gender identity: female What is your relationship status?: How often do you talk on the phone with friends or family?: three or more times per week How often do you get together with friends or relatives?: once per week How often do you attend presybeterian or scientologist services?: decline to answer Do you belong to any clubs or organized social groups?: decline to answer Panel score (0-1 are the most socially isolated patients): 2 What type of physical activity do you participate in: none Lidia/Druze: Denominational Special lidia needs: No Seatbelt use: always Helmet use: Yes Helmet use: always Drive intox or ride w/intox charter and tour bus driver: No Do you feel safe at home: Yes Do you feel safe in your relationship?: Yes Victim of physical abuse: No Victim of emotional abuse: No Victim of sexual abuse: No Would you like helpful sources: No Meds Home Medications and Allergies Allergies Allergy/AdvReac Type Severity Reaction Status Date / Time No Known Allergies Allergy Verified 12/03/20 20:58 Home Medications Medication Instructions Recorded Confirmed Type vyxpgeuhzctc-lswt-qkxrt acid 1 tab-cap PO DAILY tab-cap 11/30/12 12/03/20 History [Daily Multiple Tablet] ascorbic acid (vitamin C) 1 tab PO DAILY 12/04/12 12/03/20 History aspirin [Aspir 81] 81 mg PO DAILY 01/17/13 12/03/20 History atenolol 25 mg PO DAILY #30 tab-cap 05/15/14 12/03/20 History omega-3 fatty acids-fish oil [Fish 1 ea PO 3x weekly 02/18/15 12/03/20 History Oil 1,000 Mg Capsule] conjugated estrogens [Premarin 0.5 g VG DAILY #1 ca 12/15/15 12/03/20 History Vaginal Cream] hydrochlorothiazide 25 mg PO DAILY #90 tab-cap 04/18/17 12/03/20 History polyethylene glycol 3350 17 gram 17 gm PO .3 xweek' gm 10/17/18 12/03/20 History oral powder packet acyclovir 5 % topical ointment 1 applic TOPICAL Q2H PRN #1 tube 06/24/19 12/03/20 Rx calcium carbonate-vitamin D3 600 2 tab PO DAILY tab 10/01/19 12/03/20 History mg (1,500 mg)-800 unit tablet ferrous sulfate 325 mg (65 mg 325 mg PO DAILY #90 tab-cap 02/05/20 12/03/20 Rx iron) tablet citalopram 10 mg tablet 10 mg PO DAILY #90 tab-cap 06/29/20 12/03/20 Rx alprazolam 0.25 mg tablet 0.25 mg PO BID PRN #25 tab 11/17/20 12/03/20 Rx albuterol sulfate [ProAir HFA] 1 - 2 puff INHALATION QID PRN 12/03/20 12/03/20 History atorvastatin 20 mg PO DAILY 12/03/20 12/03/20 History Exam Const General: cooperative and no acute distress Orientation: alert and oriented x3 Eyes Sclera: sclerae normal Pupils: PERRL Chest Chest: tenderness (to compression at left costo-chondral margins) Resp Effort & Inspection: normal respiratory effort Auscultation: clear to auscultation bilaterally GI Palpation: soft and nontender Auscultation: normal bowel sounds Extrem General: no pedal edema and no calf tenderness Psych Appearance: grossly normal Mental Status: mental status grossly normal Speech and Movement: speech and movement normal Affect: normal affect Results Labs Result diagrams: 12/03/20 21:00 12/03/20 21:00 Labs: Laboratory Results - last 24 hr 12/03/20 12/03/20 12/03/20 21:00 21:00 21:00 WBC 8.11 RBC 4.78 Hgb 15.2 Hct 43.9 MCV 91.8 MCH 31.8 MCHC 34.6 RDW 12.0 Plt Count 241 MPV 9.5 Immature Gran % 0.4 Neutrophils % 53.9 Lymphocytes % 35.0 Monocytes % 8.6 Eosinophils % 1.4 Basophils % 0.7 Nucleated RBC % 0 Absolute Neutrophils 4.37 Absolute Lymphocytes 2.84 Absolute Monocytes 0.70 Absolute Eosinophils 0.11 Absolute Basophils 0.06 APTT 37.5 H D-Dimer 243 Sodium 137 Potassium 3.4 L Chloride 97 L Carbon Dioxide 30.4 Anion Gap 9.6 BUN 15 Creatinine 0.7 Estimated GFR/1.73 m2 >= 60.00 Glucose 100 Calcium 9.2 Magnesium 2.0 Total Bilirubin 0.3 AST 15 ALT 30 Alkaline Phosphatase 103 Troponin I < 0.05 Total Protein 7.9 Albumin 4.1 COVID-19 Source 12/04/20 12/04/20 12/04/20 00:15 01:10 05:23 WBC RBC Hgb Hct MCV MCH MCHC RDW Plt Count MPV Immature Gran % Neutrophils % Lymphocytes % Monocytes % Eosinophils % Basophils % Nucleated RBC % Absolute Neutrophils Absolute Lymphocytes Absolute Monocytes Absolute Eosinophils Absolute Basophils APTT D-Dimer Sodium Potassium Chloride Carbon Dioxide Anion Gap BUN Creatinine Estimated GFR/1.73 m2 Glucose Calcium Magnesium Total Bilirubin AST ALT Alkaline Phosphatase Troponin I < 0.05 < 0.05 Total Protein Albumin COVID-19 Source Nasal/nares Last Vital Signs Temp 36.8 C 12/04/20 01:35 Pulse 71 12/04/20 02:51 Resp 17 12/04/20 01:35 BP 153/87 H 12/04/20 01:35 Pulse Ox 96 12/04/20 01:35 COVID-19 Screening Have you, or household traveled for leisure in last 14 days?: No Had IN PERSON contact w/suspected or confirmed C-19 person: No
[2020-12-04] MEDS: Ketorolac 30 MG/ML VIAL IVP (06:47)
--- NOTE | 2020-12-04 08:31 | INITIAL_ITS ---
- If Service Date Differs Date of service: 12/04/20 Time of Service: 08:31 Care Management Initial Assess REASON FOR HOSPITALIZATION:: Chest Pain PAST MEDICAL HISTORY/PAST SURGICAL HISTORY:: Medical History . Carpal tunnel syndrome (08/15/08). w/ ulnar neuropathy -. Constipation. Depression. Hypertension. Irritable colon. colonoscopy 1999, 2007, 2013: normal/ [facility] in 2014. Low grade squamous intrae pithelial lesion (LGSIL) on Papanicolaou smear of cervix (10/28/11). OAB (overactive bladder) (01/05/16). normal cystoscopy 2015 [facility]. Postmenopausal bleeding (08/26/13). RUQ discomfort. Started 12/2019. US negative 01/2020. Vaginal atrophy (01/05/16). / estrogen cream PREVIOUS FUNCTIONAL STATUS/SOCIAL/FAMILY SUPPORTS:: Jennifer lives with her in [facility]. They have 2 daughters; one lives in [place] and the other is in [place]. They also have 3 grandchildren. 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 She receives no services and is independent in the community. CURRENT FUNCTIONAL STATUS:: Jennifer was sitting up in bed when CM met with her. She was receptive to converstaion and readily engaged with CM. Jennifer stated that she thought/hoped that she would be discharged today. What was originally thought to be cardiac in nature is now felt to be inflammation, Jennifer shared. ADVANCE DIRECTIVES:: none on file Has patient been provided with info about the portal/API?: Yes Did the patient sign up for the portal?: Yes (previously) CODE STATUS:: Full Code INSURANCE COVERAGE / FINANCIAL ISSUES:: CBA CURRENT HOME/COMMUNITY SERVICES/EQUIPMENT:: none PRIMARY CARE PHYSICIAN:: Shanell Aguayo POTENTIAL DISCHARGE NEEDS:: Follow up with PCP, Cardiology and plan of care PATIENT/FAMILY EDUCATION NEEDS:: Review of discharge instructions, medications, limitations, follow up plan, Ask Me Three TRANSPORTATION:: via private vehicle with family PLAN:: Jennifer will likely be discharged home with no new services. She will follow up with her community providers and transport with family. CM will continue to support Jennifer and asssess for discharge planning concerns.
[2020-12-04 08:54] LABS: Anion Gap 5.1 mmol/L (3-11); BUN 13 mg/dL (7-18); CO2 32.9 mmol/L (21.0-32.0); CREATININE 0.6 mg/dL (0.55-1.02); Calcium 9.3 mg/dL (8.5-10.1); Chloride 101 mmol/L (98-107); Glucose 96 mg/dL (74-106); Sodium 139 mmol/L (136-145)
[2020-12-04 09:02] LABS: COVID-19 PCR Negative (Negative)
[2020-12-04] MEDS: hydroCHLOROthiazide 25 MG TAB PO (09:02)
[2020-12-04] MEDS: Citalopram 10 MG TAB PO (09:02)
[2020-12-04] MEDS: Aspirin E.C. 81 MG TABEC PO (09:02)
[2020-12-04] MEDS: Multivitamin w/Minerals TAB 1 TAB PO (09:02)
[2020-12-04] MEDS: Potassium Chloride 20 MEQ TABCR PO (09:02)
[2020-12-04] MEDS: Omega-3 Fatty Acids 1000 MG CAP PO (09:10)
[2020-12-04 09:12] LABS: Magnesium 2.1 mg/dL (1.8-2.4)
--- NOTE | 2020-12-04 11:37 | DSE_ITS ---
Date of service: 12/04/20 Time of Service: 11:38 DS: Diagnosis Discharge Diagnosis (1) Chest pain: Start date: 12/04/20 Start time: 11:47 Status: Ruled-out Asessment and Plan: negative trop, costochondritis in nature. pain with palpation to L upper chest wall recommend ibuprofen for pain as needed. (2) Hypertension: Start date: 12/04/20 Start time: 11:57 Status: Acute Asessment and Plan: continue home medication (3) Anxiety: Start date: 12/04/20 Start time: 11:57 Status: Chronic Asessment and Plan: Improved. Feeling better (4) Costochondritis: Start date: 12/04/20 Start time: 12:05 Status: Acute Asessment and Plan: As above ibuprofen 800 mg as needed for pain take with food. above case discussed with Dr. hedrick Discharge Plan Disposition Patient Disposition: HOME Condition: Good Discharge Details Reason For Visit: CHEST PAIN Admit Date/Time: 12/04/20 01:02 Admit Provider: Harvinder Weiss Attending Provider: Harvinder Weiss [facility] Hospital Course: This is a 60 yo female with a PMH of HTN, HLD, depression with anxiety, overactive bladder. She presented to the ED with left sides chest pain that radiated into her left shoulder and back. The onset of the pain was appx 30 minutes prior to arrival. The pain was constant. She was given a SL nitroglycerine in the ED w/o relief of the pain. She was subsequently given a dose of alprazolam that she takes at home BID prn, and her pain improved to almost negligible. She was given a dose of ketorlac that took her pain away immediately. Her labs were unremarkable other than a K+ of 3.4. Troponin negative x 2. EKG was negative for ST, T-wave changes. CTA of chest was negative for pulmonary embolism, other acute findings. Her heart score was 4. She has a FMH of ACS and intracranial aneurysm. Admitted for further rule out. Today she feels great. No CP, SOB, N/V/D. This appears to be more costochondritis. Pain is palpable with in one area but goes away when palpation is done. She is being discharged home. Recommended ibuprofen for pain. She is agreeable. At this time she does not need an NPI. If pain changes or worsens she can consider this with her PCP and have done as an outpatient. Home Meds and New Rx's Prescriptions: Continued acyclovir [Zovirax] 5 % ointment 1 applic Topical Q2H PRN (Reason: cold sores) Qty: 1 RF: 0 Daily Multiple 1 EACH tablet 1 tab-cap PO DAILY RF: 0 ascorbic acid (vitamin C) 1,000 MG tablet 1 tab PO DAILY RF: 0 atenolol 25 MG tablet 25 mg PO DAILY Qty: 30 RF: 12 Fish Oil 1 EACH capsule 1 ea PO 3x weekly RF: 0 Premarin 45 GM cream 0.5 g VG DAILY Qty: 1 RF: 0 hydrochlorothiazide 25 MG tablet 25 mg PO DAILY Qty: 90 RF: 0 polyethylene glycol 3350 [Miralax] 17 gram powder in packet 17 gm PO .3 xweek' RF: 0 calcium carbonate-vitamin D3 [Caltrate with Vitamin D3] 600 mg(1,500mg) -800 unit tablet 2 tab PO DAILY RF: 0 ferrous sulfate 325 mg (65 mg iron) tablet 325 mg PO DAILY Qty: 90 RF: 4 citalopram 10 mg tablet 10 mg PO DAILY Qty: 90 RF: 3 alprazolam [Xanax] 0.25 mg tablet 0.25 mg PO BID PRN (Reason: generalized anxiety disorder) Qty: 25 RF: 0 aspirin [Aspir-81] 81 MG tablet,delayed release (DR/EC) 81 mg PO DAILY RF: 0 atorvastatin 20 mg Tablet 20 mg PO DAILY RF: 0 albuterol sulfate [ProAir HFA] 90 mcg/actuation HFA aerosol inhaler 1 - 2 puff Inhalation QID PRNRF: 0 Discharge Instructions Instructions: Costochondritis (DC), Safe Use of NSAIDs (DC) Additional Instructions: Take up to 800 ibpurofen mg three times a day as need if you take this consecutively take for only 5 days with food, or you can take 800 mg as needed or aleve 250 mg as needed for pain, any NSAID to help with inflammation. Follow up with PCP as needed. All imaging was negative Your heart work up was negative Stand Alone Forms: Nursing Discharge Form Activity:: Activity as Tolerated Equipment/Supplies:: No Equipment Needed Diet:: Low Sodium Discharge Orders Discharge Orders: Discharge Order (Routine); Ordered 12/04/20 Ordered By: Magdalene Claudio DS: Summary Time Spent with Patient providing and/or coordinating discharge services: Greater than 30 minutes (approx 40 mins discharge) Status at Discharge Functional status at discharge: independent ambulation Overall status at discharge: patient is back to baseline Mental Status: mental status grossly normal Speech and Movement: speech and movement normal Mood: congruent mood Affect: normal affect Exam Const General: cooperative and no acute distress Orientation: alert and oriented x3 Eyes Sclera: sclerae normal Pupils: PERRL Chest Chest: tenderness (to compression at left costo-chondral margins) Resp Effort & Inspection: normal respiratory effort Auscultation: clear to auscultation bilaterally GI Palpation: soft and nontender Auscultation: normal bowel sounds Extrem General: no pedal edema and no calf tenderness Psych Appearance: grossly normal Mental Status: mental status grossly normal Speech and Movement: speech and movement normal Mood: congruent mood Affect: normal affect DS: Data Vitals/I&O Vitals and I&O: Vital Signs Temperature 36.4 C L 12/04/20 07:10 Temperature Source Tympanic 12/04/20 07:10 Pulse 72 12/04/20 07:10 Pulse Rhythm Regular 12/04/20 07:26 Pulse 75 12/04/20 01:10 Respiratory Rate 18 12/04/20 07:10 Respiratory Effort Non-Labored 12/04/20 07:26 Respiratory Depth Normal 12/04/20 07:26 Respiratory Pattern Normal 12/04/20 07:26 Blood Pressure 132/75 12/04/20 07:10 Blood Pressure Mean 101 12/04/20 01:00 Blood Pressure Position Supine 12/03/20 20:52 Pulse Oximetry 99 12/04/20 07:10 Oxygen Delivery Method Room Air 12/04/20 07:10 Oxygen Flow Rate 0 12/04/20 07:10 Pain Level 0 12/04/20 11:15 Comment 12/04/20 11:15 Intake & Output 12/03/20 12/03/20 12/04/20 11:59 23:59 11:59 Intake Total 420 / 420 Output Total 1800 / 1800 Balance -1380 / -1380 Weight 136 kg 59.1 kg Intake: IV Oral 420 / 420 Output: Urine 1800 / 1800 Other: Urine Color Yellow Urine Appearance Clear Urine Odor Normal Comment Void x1 in the toilet. Voiding Methods Toilet Data Completed and Pending Completed studies during hospitalization [Text1]: Exam(s) a CT:CT thorax & abdomen CTA EXAM: CT THORAX ABDOMEN CTA CLINICAL HISTORY: left chest pain radiating to back. TECHNIQUE: Imaging Protocol: Axial CT angiography was performed with multi- slice acquisition and multi-planar and/or 3D reconstructions. CONTRAST MATERIAL: Intravenous: Omnipaque 350 Contrast volume:structured data in ml COMPARISON: CT CT ABDOMEN PELVIS W from 11/05/2020 FINDINGS: CT angiography of the chest and upper abdomen was performed with intravenous infusion of 100 cc of Omnipaque 350. Lungs are predominantly clear, there is mild bilateral apical pleural based scarring period. No pleural effusion. Tracheobronchial tree appears intact. No evidence of pulmonary embolic disease. Thoracic aorta is of normal diameter, no thoracic aortic aneurysm or dissection, major branch vessels appear intact. No mediastinal or hilar adenopathy. Images obtained through the upper abdomen show unremarkable appearance of the visualized portions of the liver, spleen, pancreas, adrenals, and kidneys. Abdominal aorta is of normal diameter. The celiac trunk, superior mesenteric artery, renal arteries, in inferior mesenteric artery are unremarkable. Common iliac arteries appear normal. IMPRESSION: Negative CT angiogram of the chest and upper abdomen. No evidence of pulmonary embolic disease. Labs on day of discharge: Labs from last 24 hours 12/04/20 12/04/20 12/04/20 08:25 08:25 05:23 WBC RBC Hgb Hct MCV MCH MCHC RDW Plt Count MPV Immature Gran % Neutrophils % Lymphocytes % Monocytes % Eosinophils % Basophils % Nucleated RBC % Absolute Neutrophils Absolute Lymphocytes Absolute Monocytes Absolute Eosinophils Absolute Basophils APTT D-Dimer Sodium 139 Potassium 4.0 Chloride 101 Carbon Dioxide 32.9 H Anion Gap 5.1 BUN 13 Creatinine 0.6 Estimated GFR/1.73 m2 >= 60.00 Glucose 96 Calcium 9.3 Magnesium 2.1 Total Bilirubin AST ALT Alkaline Phosphatase Troponin I < 0.05 Total Protein Albumin COVID-19 Source SARS-CoV-2 (PCR) 12/04/20 12/04/20 12/03/20 01:10 00:15 21:00 WBC RBC Hgb Hct MCV MCH MCHC RDW Plt Count MPV Immature Gran % Neutrophils % Lymphocytes % Monocytes % Eosinophils % Basophils % Nucleated RBC % Absolute Neutrophils Absolute Lymphocytes Absolute Monocytes Absolute Eosinophils Absolute Basophils APTT 37.5 H D-Dimer 243 Sodium Potassium Chloride Carbon Dioxide Anion Gap BUN Creatinine Estimated GFR/1.73 m2 Glucose Calcium Magnesium Total Bilirubin AST ALT Alkaline Phosphatase Troponin I < 0.05 Total Protein Albumin COVID-19 Source Nasal/nares SARS-CoV-2 (PCR) Negative 12/03/20 12/03/20 21:00 21:00 WBC 8.11 RBC 4.78 Hgb 15.2 Hct 43.9 MCV 91.8 MCH 31.8 MCHC 34.6 RDW 12.0 Plt Count 241 MPV 9.5 Immature Gran % 0.4 Neutrophils % 53.9 Lymphocytes % 35.0 Monocytes % 8.6 Eosinophils % 1.4 Basophils % 0.7 Nucleated RBC % 0 Absolute Neutrophils 4.37 Absolute Lymphocytes 2.84 Absolute Monocytes 0.70 Absolute Eosinophils 0.11 Absolute Basophils 0.06 APTT D-Dimer Sodium 137 Potassium 3.4 L Chloride 97 L Carbon Dioxide 30.4 Anion Gap 9.6 BUN 15 Creatinine 0.7 Estimated GFR/1.73 m2 >= 60.00 Glucose 100 Calcium 9.2 Magnesium 2.0 Total Bilirubin 0.3 AST 15 ALT 30 Alkaline Phosphatase 103 Troponin I < 0.05 Total Protein 7.9 Albumin 4.1 COVID-19 Source SARS-CoV-2 (PCR) PFSH Medical History Carpal tunnel syndrome (08/15/08) w/ ulnar neuropathy - Constipation Depression Hypertension Irritable colon colonoscopy 1999, 2007, 2013: normal/ [facility] in 2014 Low grade squamous intraepithelial lesion (LGSIL) on Papanicolaou smear of cervix (10/28/11) OAB (overactive bladder) (01/05/16) normal cystoscopy 2015 [facility] Postmenopausal bleeding (08/26/13) RUQ discomfort Started 12/2019 US negative 01/2020 Vaginal atrophy (01/05/16) / estrogen cream Surgical History Augmentation mammoplasty B/L X 3 FOOT SURGERY (~01/2012) HAND SURGERY (~01/2013) Revision, Scar (~1992) Tonsillectomy and adenoidectomy (~1963) Family History Mother , age 90 Essential hypertension Heart disease Angina Hyperlipidemia Father , age 59 Essential hypertension Heart disease Hyperlipidemia Myocardial infarction Brother Acute hepatitis c CURED Heart disease Stroke cerebral aneurysm Prostate cancer Cerebral aneurysm Maternal Grandfather , age 45 Pulmonary disease Lung cancer Paternal Grandfather Heart disease Maternal Grandmother , age 95 Dementia Alzheimer's Paternal Grandmother , in her 40s Heart disease Daughter Essential hypertension Family history Lung cancer Colon cancer Social History Smoking/Tobacco Use Status: Never Smoking risk assessment performed?: Yes Alcohol Intake: current Alcohol Intake frequency: 0-2 drinks per day Alcohol type: wine Drug use: Never Substance use type: does not use Caregiver/Support person: No Household members: spouse Housing: house Communication Needs: None Do you need help understanding health information?: Never Pets and animals: Yes Pets and animals: cat(s) Sexually active: Yes Do you think of yourself as: straight/heterosexual Current gender identity: female What is your relationship status?: How often do you talk on the phone with friends or family?: three or more times per week How often do you get together with friends or relatives?: once per week How often do you attend protestant or buddhist services?: decline to answer Do you belong to any clubs or organized social groups?: decline to answer Panel score (0-1 are the most socially isolated patients): 2 What type of physical activity do you participate in: none Lidia/Jainism: Druze Special lidia needs: No Seatbelt use: always Helmet use: Yes Helmet use: always Drive intox or ride w/intox cattle driver: No Do you feel safe at home: Yes Do you feel safe in your relationship?: Yes Victim of physical abuse: No Victim of emotional abuse: No Victim of sexual abuse: No Would you like helpful sources: No
--- NOTE | 2020-12-04 12:48 | PDOC.CMDIS ---
- If Service Date Differs Date of service: 12/04/20 Time of Service: 12:48 LACE Index Scoring Tool - Questions: Length of Stay (in days): 1 Acuity (Admit via E.D.?): Yes E.D. Visits: 1 - Answers: Total Score: 5 Risk of Readmission: Low Risk Care Management Discharge Reason for Hospitalization: Chest Pain Discharge Plan: Jennifer will be discharged home with no new services. She will follow up with her community providers and transport with family. Patient/Family Education Needs: Review of discharge instructions, medications, limitations, follow up plan, Ask Me Three
== END 2020-12-04 13:02 | disposition home or self-care (01) ==
LOC: ER 12-04 01:07 → MS 12-04 01:35
PROVIDERS: Nurse Practitioner Family; Student in an Organized Health Care Education/Training Program; Admitting Provider Family Medicine; Emergency Provider Emergency Medicine; PCP Family Medicine; Visit Provider Family Medicine
DX: M94.0 Chondrocostal junction syndrome [Tietze] (principal); I10 Essential (primary) hypertension; E78.5 Hyperlipidemia, unspecified; F41.8 Other specified anxiety disorders; N32.81 Overactive bladder
CPT/HCPCS: 36415; 71275; 74175; 80048; 80053; 87635; 93005; 99217; 99219; 99285; 83735; 84484; 85025; 85379; 85730; 93010; 99235; G0378; J1885; J3490

== ENCOUNTER 2021-03-23 03:31 | Outpatient (CLI) | payer OTHER, SELFPAY ==
[2021-03-24 20:26] LABS: Calculated LDL 130 mg/dL (<100); Cholesterol 222 mg/dL (<200); HDL Cholesterol 77 mg/dL (40-60); Triglyceride 78 mg/dL (<150)
== END 2021-03-23 03:32 | disposition home or self-care (01) ==
LOC: LBO 03:32
PROVIDERS: PCP Family Medicine; Visit Provider Internal Medicine Cardiovascular Disease
DX: E78.5 Hyperlipidemia, unspecified (principal)
CPT/HCPCS: 36415; 80061

== ENCOUNTER 2021-08-23 04:04 | Outpatient (CLI) | payer OTHER, SELFPAY ==
[2021-08-23 08:05] LABS: HCT 43.9 % (36.0-46.0); HGB 14.6 g/dL (11.2-15.7)
[2021-08-23 09:02] LABS: Iron 119 ug/dL (50-170)
[2021-08-23 09:16] LABS: ALT 27 U/L (14-59); AST 20 U/L (15-37); Alkaline Phosphatase 89 U/L (46-116); Anion Gap 3.9 mmol/L (3-11); BUN 16 mg/dL (7-18); Bilirubin, Total 0.4 mg/dL (0.2-1.0); CO2 33.1 mmol/L (21.0-32.0); CREATININE 0.6 mg/dL (0.55-1.02); Chloride 97 mmol/L (98-107); Ferritin 424 ng/mL (8-252); Glucose 85 mg/dL (74-106); Potassium 4.6 mmol/L (3.5-5.1); Sodium 134 mmol/L (136-145); Total Protein 7.2 g/dL (6.4-8.2)
== END 2021-08-23 04:05 | disposition home or self-care (01) ==
LOC: LBO 04:04
PROVIDERS: PCP Family Medicine; Visit Provider Family Medicine
DX: I10 Essential (primary) hypertension (principal); Z86.2 Personal history of diseases of the blood and blood-forming organs and certain disorders involving the immune mechanism
CPT/HCPCS: 36415; 80053; 82728; 83540; 85014; 85018

== ENCOUNTER 2021-09-08 02:27 | Outpatient (CLI) | payer OTHER, SELFPAY ==
[2021-09-08 08:33] LABS: Calculated LDL 134 mg/dL (<100); Cholesterol 238 mg/dL (<200); HDL Cholesterol 90 mg/dL (40-60); Triglyceride 73 mg/dL (<150)
== END 2021-09-08 02:28 | disposition home or self-care (01) ==
LOC: LBO 02:27
PROVIDERS: Family Medicine
DX: I10 Essential (primary) hypertension (principal)
CPT/HCPCS: 36415; 80061